=== PATIENT | male | born 2000 | race Caucasian/White ===

== ENCOUNTER 2023-09-16 09:58 | Emergency (ER) | payer SELFPAY ==
--- NOTE | ~2023-09-16 | CT_ITS ---
EXAMINATION: CT abdomen pelvis wo con DATE: 09/16/2023 11:25 INDICATION: Suprapubic abdominal pain. TECHNIQUE: Computed tomography (CT) of the abdomen and pelvis was performed without intravenous contr ast. Automated exposure control and iterative reconstruction technique were employed. The dose-length product was 904.60 mGy-cm. COMPARISON: None. FINDINGS: The visualized portions of the lung bases are clear without pneumonia or pleural effusion. The heart size is normal. No pericardial effusion. The liver, gallbladder, spleen, pancreas, adrenal glands, and right kidney are normal. There are two 1 mm stones in left kidney. There is a 4 mm parenc hymal calcification in left kidney. There is mild left hydronephrosis and hydroureter. There is a 4 m m stone in distal left ureter. There are no dilated loops of bowel. The appendix is normal. There are no pathologically enlarged lymph nodes. There is no free intraperitoneal fluid. There is mild thorac ic and lumbar spondylosis. IMPRESSION: 1. 4 mm stone in distal left ureter with mild left hydronephrosis and hydroureter. 2. Nonobstructing left kidney stones. Reviewed, dictated and finalized at location E. IMPRESSION: 1. 4 mm stone in distal left ureter with mild left hydronephrosis and hydrouret er. 2. Nonobstructing left kidney stones.
[2023-09-16 09:59] VITALS: BP 191/112; PULSE 101; RESP 20; TEMP 36.4; O2SAT 98
[2023-09-16 10:23] VITALS: BP 162/94; PULSE 68; RESP 16; O2SAT 100
[2023-09-16 10:34] LABS: Hematocrit 46.6 % (42.0-52.0); Hemoglobin 15.6 g/dL (14.0-18.0); Mean Corpuscular HGB Conc 33.5 g/dl (32-36); Mean Corpuscular Hemoglobin 30.8 pg (26-34); Mean Corpuscular Volume 91.9 fl (80-100); Mean Platelet Volume 10.1 fl (7.4-10.4); Platelet Count Result 207 k/mm3 (150-375); Red Blood Count 5.07 M/mm3 (4.6-6.20); Red Cell Distribution Width 12.2 % (11.5-14.5); White Blood Count 6.5 K/mm3 (4.5-10.0)
[2023-09-16 10:42] LABS: Appearance Urine Cloudy (Clear); Bacteria Urine None Seen /hpf; Bilirubin Urine Negative (Negative); Blood Urine 3+ (Negative); Color Urine Dark Yellow (Yellow); Glucose Urine UA Negative (Negative); Ketones Urine Negative (Negative); Leukocyte Esterase Ur Negative LEU/UL (Negative); Nitrate Urine Negative (Negative); Non Pathogenic Casts 0-2; Protein Urine 1+ mg/dL (Negative); RBC Urine >100 /hpf (0-2); Specific Grav Ur 1.024 (1.001-1.035); Squamous Epithelial Cell Urine None Seen /hpf (Few); Urobilinogen Urine 0.2 mg/dL (<2.0); WBC Urine 0-5 /hpf (0-3)
[2023-09-16] MEDS: ONDANSETRON INJ 4 MG/2 ML VIAL IV PUSH (10:44)
[2023-09-16] MEDS: LACTATED RINGERS 2,000 ML 999 ML IV CONT (10:44)
[2023-09-16] MEDS: MORPHINE SULFATE (*CRX) 4 MG/ML INJ IV PUSH (10:44)
[2023-09-16 10:51] LABS: Alanine Aminotransferase 26 U/L (6-50); Albumin Level 4.8 g/dL (3.5-5.1); Alkaline Phosphatase 58 U/L (38-126); Anion Gap 8 mmol/L (4-12); Aspartate Amino Transferase 25 U/L (17-59); Bilirubin,Total 0.9 mg/dL (0.2-1.3); Blood Urea Nitrogen 13 mg/dL (9-20); Calcium 9.7 mg/dL (8.4-10.2); Carbon Dioxide 26 mmol/L (22-30); Chloride 103 mmol/L (98-107); Estimated CRCL calculation 110 ml/min; Estimated Glomerular Filt Rate > 60; Glucose 111 mg/dL (65-110); Lipase 81 U/L (23-300); Potassium 3.5 mmol/L (3.4-5.0); Sodium 137 mmol/L (137-145)
--- NOTE | 2023-09-16 10:59 | ED.ABDPAIN ---
HPI - Abdominal Pain General Chief Complaint: Abdominal Pain Stated Complaint: abdominal pain Time Seen by Provider: 09/16/23 10:17 History of Present Illness HPI narrative: This is a 23-year-old male, with no significant past medical history, who presents to emergency department complaining of abdominal pain for the past 2-3 days. The patient describes the pain as sharp, constant without radiation and located at the left groin. He denies other recent changes, including fevers chills, vomiting or change in urination. He has no other complaints at this time. Related Data Allergies Allergy/AdvReac Type Severity Reaction Status Date / Time No Known Allergies Allergy Verified 09/16/23 09:59 Review of Systems Review of Systems: CONSTITUTIONAL: Denies fever, chills, or sweats. EYES: Denies visual changes, redness, or discharge. ENT: Denies rhinorrhea, congestion, sore throat, or otalgia. CARDIOVASCULAR: Denies chest pain, palpitations, or edema. RESPIRATORY: Denies cough or dyspnea. GASTROINTESTINAL: Left lower abdominal pain, nausea Denies vomiting, or diarrhea. GENITOURINARY: Denies dysuria or hematuria. SKIN: Denies rash or itching. MUSCULOSKELETAL: Denies back pain, joint pain, or myalgia. NEUROLOGIC: Denies headache, numbness, dizziness, or weakness. PSYCHIATRIC: Denies anxiety or depression. [facility] Past Medical History Medical History No significant past medical history Surgical History Surgical History No significant past surgical history Social History Social History Smoking status: Never smoker Alcohol intake: never Substance use: never Exam Narrative: GENERAL: Well-developed, well-nourished, and in no acute distress. HEAD: Normocephalic, atraumatic. EYES: PERRLA and EOMI. ENT: Nares clear, no rhinorrhea or epistaxis. Mucous membranes moist. Oropharynx without tonsillar hypertrophy exudate or other lesions. CHEST: Clear to auscultation. No respiratory distress. No wheezes rales or rhonchi HEART: Regular rate and rhythm. No murmur heard. Normal peripheral pulses. ABDOMEN: Soft, tender palpation in the left lower quadrant, without rebound or guarding, nondistended, normal active bowel sounds. No noted inguinal hernia. No CVA tenderness to palpation EXTREMITIES: Normal range of motion. No edema. SKIN: Warm, dry, no rash. NEURO: Alert and oriented x3. No focal deficit. Moving all 4 limbs spontaneously PSYCH: Normal mood and affect. Course Course Emergency Course: 11:52 - CT scan demonstrates a left-sided ureterolithiasis measuring 4 mm at the UVJ. Chemistries unremarkable. CBC unremarkable. Urinalysis demonstrates hematuria but is otherwise unremarkable. Will discharge with Flomax, pain medications and nausea medications as well as referral to Urology. I discussed the findings and recommendations with the patient. Discussed return and emergency precautions including signs/symptoms of acute abdomen and intractable vomiting. The patient voiced understanding and agreement with the plan. All questions answered to his satisfaction. Vital Signs Vital signs: Vital Signs Temperature 97.5 F L 09/16/23 09:59 Pulse Rate 101 H 09/16/23 09:59 Respiratory Rate 20 09/16/23 09:59 Blood Pressure 191/112 H 09/16/23 09:59 Pulse Oximetry 98 09/16/23 09:59 Oxygen Delivery Room Air 09/16/23 09:59 Temperature 97.5 F L 09/16/23 09:59 Pulse Rate 101 H 09/16/23 09:59 Respiratory Rate 20 09/16/23 09:59 Blood Pressure 191/112 H 09/16/23 09:59 Pulse Oximetry 98 09/16/23 09:59 Oxygen Delivery Room Air 09/16/23 09:59 MDM - Abdominal Pain MDM Narrative Medical decision making narrative: Plan: Labs, imaging, pain control, antiemetics, IV fluids, reassess Differential Diagnosis Differential diagnosis: Likely a
[2023-09-16 11:02] VITALS: BP 127/68; PULSE 70; RESP 16; TEMP 36.7; O2SAT 100
[2023-09-16 11:06] LABS: Add Urine Microscopic? YES
[2023-09-16 11:14] LABS: Lymphocytes Absolute Manual 1.62 K/mm3 (1.1-4.5); Monocytes Absolute Manual 0.39 K/mm3 (0.1-0.90); Monocytes Percent Manual 6 % (3-9); Neutrophils Percent Manual 69 % (46-73); Platelet Estimate Adequate (Adequate); Schistocytes None Seen; Total Cells Counted 100
[2023-09-16] MEDS: KETOROLAC 30 MG/ML VIAL (*BKC) IV PUSH (11:47)
[2023-09-16 12:05] VITALS: BP 128/68; PULSE 68; RESP 16; TEMP 36.7; O2SAT 100
== END 2023-09-16 12:07 | disposition home or self-care (01) ==
PROVIDERS: Emergency Provider Preventive Medicine Aerospace Medicine; Referring Provider Emergency Medicine
DX: N20.1 Calculus of ureter (principal)
CPT/HCPCS: 36415; 74176; 80053; 81001; 83690; 85025; 96361; 96374; 96375; 99284; J1885; J2270; J2405; J7120